=== PATIENT | male | born 1945 | race Caucasian/White ===

== ENCOUNTER → 2017-02-13 | Outpatient (REF) ==
[~2017-02-13] MED LIST: ALLEGRA 180MG180 MG PO; ALLEGRA180 MG PO; ASPIR-LOW81 MG PO; ASPIRIN 32325 MG/TAB PO; ASPIRIN E.C. 8181 MG PO; ATOXIMETIN-B1 CAP PO; BETAPACE 120MG120 MG PO; BETAPACE160 MG PO; CALCIUM + D 5001 TAB PO; CALCIUM 600MG+D1 TAB PO; CARAFATE 1GM1 G PO; CIPRO 500MG TA500 MG PO; CLARITIN 1010 MG/TAB PO; DOXYCYCLINE 10100 MG PO; ELIQUIS 5MG PO; FISH OIL1 IU PO; FLEXERIL10 MG PO; FLOVENT DI50 MCG/Act IH; GARLIC; GARLIC100 MG PO; GLUCOTROL XL10 MG PO; GLUCOTROL XL5 MG/TAB PO; KETOROLAC10 MG PO; KLOR-CON SPRINK8 MEQ PO; KLOR-CON/EF25 MEQ PO; LASIX; LAVITRA PO; LEVITRA10 MG PO; LIDODERM PATCH TP; LOPRESSOR100 MG PO; METFORMIN HCL1000 MG PO; MICARDIS HCT 251 TAB PO; MICARDIS80 MG PO; MICRO-K8 MEQ PO; MULTAQ400 MG PO; NATURAL E400 IU PO; NEXIUM 40MG40 MG PO; NORCO 325 MG-51 TAB PO; OMEGA 31000 MG PO; OMEGA-3 FISH1000 MG PO; PHARMASSURE SA160 MG PO; PLENDIL PO; PLENDIL10 MG PO; POTASSIUM CH2 MEQ/ML; POTASSIUM20 MEQ PO; ROXICODONE 55 MG/TAB PO; SOMA350 MG PO; TOPROL XL100 MG PO; TYLENOL 325MG325 MG PO; VIAGRA100 MG PO; VIAGRA50 M1 PO; VITAMIN E1000 U/CAP PO; ZOCOR 20MG20 MG PO; ZOFRAN4 MG PO; [UNRECOGNIZED DRUG - OTHER]
== END ==
LOC: ZLAB.STJ 11:28
DX: Z01.89 Encounter for other specified special examinations (principal)

== ENCOUNTER 2017-03-14 13:26 | Inpatient (IN) | payer MEDICARE, OTHER ==
[~2017-03-14] VITALS: Ht 172.7 cm; Wt 107.8 kg
[~2017-03-14 13:26] MED LIST changes: -ASPIRIN 32325 MG/TAB PO; -BETAPACE 120MG120 MG PO; -BETAPACE160 MG PO; -ELIQUIS 5MG PO; -GARLIC100 MG PO; -GLUCOTROL XL10 MG PO; -KLOR-CON/EF25 MEQ PO; -LOPRESSOR100 MG PO; -MULTAQ400 MG PO; -OMEGA-3 FISH1000 MG PO; -VIAGRA50 M1 PO
[2017-03-16] VITALS (8 sets, daily range): BP systolic 106–151; BP diastolic 49–74; PULSE 63–92; TEMP 97.5–98
[2017-03-16] MEDS ORDERED: ELIQUIS 5MG PO (08:55)
[2017-03-16] MEDS ORDERED: ASPIRIN 32325 MG/TAB PO (08:55)
[2017-03-16] MEDS ORDERED: PLENDIL10 MG PO (08:56)
[2017-03-16] MEDS ORDERED: GARLIC100 MG PO (08:56)
[2017-03-16] MEDS ORDERED: LOPRESSOR100 MG PO (08:58)
[2017-03-16] MEDS ORDERED: MICARDIS HCT 251 TAB PO (08:58)
[2017-03-16] MEDS ORDERED: GLUCOTROL XL10 MG PO (08:58)
[2017-03-16] MEDS ORDERED: KLOR-CON/EF25 MEQ PO (08:59)
[2017-03-16] MEDS ORDERED: OMEGA-3 FISH1000 MG PO (08:59)
[2017-03-16] MEDS ORDERED: VIAGRA50 M1 PO (09:00)
[2017-03-16] MEDS ORDERED: PHARMASSURE SA160 MG PO (09:00)
[2017-03-16] MEDS ORDERED: CARAFATE 1GM1 G PO (09:00)
[2017-03-16] MEDS ORDERED: NATURAL E400 IU PO (09:01)
[2017-03-16] MEDS ORDERED: MULTAQ400 MG PO (09:02)
[2017-03-16 09:22] LABS: BASO # 0.1 (0.0-0.2); EOS # 0.3 (0.0-0.7); EOS % 2.9 % (0-4.0); GRAN # 6.3 (1.4-6.5); GRAN % 64.5 % (42.2-75.2); HEMATOCRIT 49.8 % (42.0-52.0); HEMOGLOBIN 16.8 g/dl (13.5-18.0); LYMPH % 20.4 % (20.0-51.0); MEAN CELL VOLUME 90 fl (80.0-100.0); MEAN CORPUSCULAR HEMOGLOBIN 30 pg (27.0-31.0); MEAN CORPUSCULAR HGB CONC 34 g/dl (33.0-37.0); MEAN PLATELET VOLUME 10.4 fl (7.4-10.4); MONO # 1.1 (0.1-0.6); MONO % 10.9 % (1.7-9.3); PLATELET COUNT 189 K/mm3 (130-400); RED BLOOD COUNT 5.52 M/mm3 (4.20-5.60); REDCELL DISTRIBUTION WIDTH-CV 14.2 % (11.5-14.5); WHITE BLOOD COUNT 9.8 K/mm3 (4.8-10.8)
[2017-03-16 09:28] LABS: INR 1.3 (0.8-3.0); PROTHROMBIN TIME 14.7 SECONDS (9.7-12.8)
[2017-03-16 09:31] LABS: ADJUSTED CALCIUM 9.3 mg/dL (8.4-10.2); ALBUMIN 4.3 gm/dL (3.5-5.0); BILIRUBIN,TOTAL 1.1 mg/dL (0.0-1.0); CALCIUM 9.5 mg/dL (8.4-10.2); CREATININE, serum 1.03 mg/dL (0.66-1.25); MAGNESIUM 2.1 mg/dL (1.6-2.3); TOTAL PROTEIN 7.2 gm/dL (6.4-8.2)
[2017-03-16 12:24] LABS: PARTIAL THROMBOPLASTIN TIME 36.4 SECONDS (26.0-37.0)
[2017-03-17 03:30] VITALS: BP 129/67; PULSE 68; TEMP 98.1
[2017-03-17 07:17] LABS: INR 1.3 (0.8-3.0); PROTHROMBIN TIME 14.9 SECONDS (9.7-12.8)
[2017-03-17 07:21] LABS: CALCIUM 8.9 mg/dL (8.4-10.2); CREATININE, serum 0.85 mg/dL (0.66-1.25); POTASSIUM 3.6 mmol/L (3.4-5.0)
[2017-03-17 07:32] VITALS: BP 141/60; PULSE 68; TEMP 98.2
[2017-03-17 11:15] VITALS: BP 128/59; PULSE 62; TEMP 98.5
[2017-03-17 15:33] VITALS: BP 133/56; PULSE 60; TEMP 97.7
[2017-03-17 21:07] VITALS: BP 113/82; PULSE 61; TEMP 98.8
[2017-03-17 23:22] VITALS: BP 115/60; PULSE 72; TEMP 98
[2017-03-18 04:23] VITALS: BP 142/55; PULSE 64; TEMP 98.2
[2017-03-18 07:18] VITALS: BP 117/76; PULSE 62; TEMP 97.5
[2017-03-18 07:46] LABS: CALCIUM 9.2 mg/dL (8.4-10.2); CREATININE, serum 0.86 mg/dL (0.66-1.25); POTASSIUM 3.7 mmol/L (3.4-5.0)
[2017-03-18 08:04] LABS: INR 1.4 (0.8-3.0); PROTHROMBIN TIME 15.5 SECONDS (9.7-12.8)
[2017-03-18] MEDS ORDERED: BETAPACE 120MG120 MG PO (11:02)
== END 2017-03-18 11:59 | disposition home or self-care (01) | DRG 310 ==
LOC: MEDICAL 03-16 07:47
PROVIDERS: Internal Medicine Cardiovascular Disease
PROC: 5A2204Z Restoration of Cardiac Rhythm, Single (ICD-10-PCS; principal; 2017-03-16)
DX: I48.91 Unspecified atrial fibrillation (principal); I10 Essential (primary) hypertension; K21.9 Gastro-esophageal reflux disease without esophagitis; E11.9 Type 2 diabetes mellitus without complications; E78.5 Hyperlipidemia, unspecified
CPT/HCPCS: J2704; J7030

== ENCOUNTER 2017-03-27 10:42 | Day surgery (SDC) | payer MEDICARE, OTHER ==
[~2017-03-27] VITALS: Ht 172.8 cm; Wt 105.0 kg
[~2017-03-27 10:42] MED LIST changes: +ASPIRIN 32325 MG/TAB PO; +BETAPACE 120MG120 MG PO; +ELIQUIS 5MG PO; +GARLIC100 MG PO; +GLUCOTROL XL10 MG PO; +KLOR-CON/EF25 MEQ PO; +LOPRESSOR100 MG PO; +MULTAQ400 MG PO; +OMEGA-3 FISH1000 MG PO; +VIAGRA50 M1 PO
[2017-03-27] MEDS ORDERED: BETAPACE160 MG PO (11:11)
[2017-03-27 11:12] LABS: HEMOGLOBIN 17.8 g/dl (13.5-18.0); MEAN CELL VOLUME 90 fl (80.0-100.0); MEAN CORPUSCULAR HEMOGLOBIN 30 pg (27.0-31.0); MEAN CORPUSCULAR HGB CONC 34 g/dl (33.0-37.0); MEAN PLATELET VOLUME 9.7 fl (7.4-10.4); PLATELET COUNT 194 K/mm3 (130-400); RED BLOOD COUNT 5.85 M/mm3 (4.20-5.60); WHITE BLOOD COUNT 9.3 K/mm3 (4.8-10.8)
[2017-03-27 11:16] LABS: HEMATOCRIT 52.4 % (42.0-52.0)
[2017-03-27 11:17] LABS: INR 1.3 (0.8-3.0); PROTHROMBIN TIME 15.1 SECONDS (9.7-12.8)
[2017-03-27 11:21] LABS: CALCIUM 9.3 mg/dL (8.4-10.2); CREATININE, serum 0.8 mg/dL (0.66-1.25)
[2017-03-27 11:40] VITALS: BP 134/70; PULSE 74; TEMP 98.6
== END 2017-03-27 12:21 | disposition home or self-care (01) ==
LOC: EUO 10:42 → COL.CAR 10:45 → EUO 12:21
PROVIDERS: Internal Medicine Cardiovascular Disease
DX: I48.0 Paroxysmal atrial fibrillation (principal); Z53.09 Procedure and treatment not carried out because of other contraindication; I10 Essential (primary) hypertension; E78.2 Mixed hyperlipidemia; E11.9 Type 2 diabetes mellitus without complications; K21.9 Gastro-esophageal reflux disease without esophagitis; R42 Dizziness and giddiness; E07.9 Disorder of thyroid, unspecified; K75.81 Nonalcoholic steatohepatitis (NASH); E66.9 Obesity, unspecified; Z79.01 Long term (current) use of anticoagulants; R60.0 Localized edema; C61 Malignant neoplasm of prostate
CPT/HCPCS: J2704

== ENCOUNTER → 2017-04-06 | Outpatient (REF) ==
[~2017-04-06] MED LIST changes: +ALLEGRA 60MG TA60 MG PO; +BETAPACE160 MG PO; +JANUVIA 100MG100 MG PO; +LIDODERM 5% PATC1 EA TP; +NEURONTIN600 MG/TAB PO; +PROAIR HFA0.09 MG/AC IH; +TIKOSYN0.5 MG PO; +ZANAFLEX2 MG PO
== END ==
LOC: ZLAB.WCH 21:05
DX: Z01.89 Encounter for other specified special examinations (principal)

== ENCOUNTER → 2017-10-19 | Outpatient (REF) ==
[~2017-10-19] MED LIST changes: -ALLEGRA 60MG TA60 MG PO; -JANUVIA 100MG100 MG PO; -LIDODERM 5% PATC1 EA TP; -NEURONTIN600 MG/TAB PO; -PROAIR HFA0.09 MG/AC IH; -TIKOSYN0.5 MG PO; -ZANAFLEX2 MG PO
== END ==
LOC: ZLAB.WCH 16:01
DX: Z01.89 Encounter for other specified special examinations (principal)

== ENCOUNTER → 2017-12-05 | Outpatient (CLI) | payer MEDICARE, OTHER | LOC: MHCPAIN 14:51 | DX: G89.29 Other chronic pain (principal); M47.812 Spondylosis without myelopathy or radiculopathy, cervical region; M48.02 Spinal stenosis, cervical region | CPT/HCPCS: G0463 ==

== ENCOUNTER → 2018-01-18 | Outpatient (REF) | LOC: ZLAB.WCH 15:13 | DX: Z01.89 Encounter for other specified special examinations (principal) ==

== ENCOUNTER → 2018-04-04 | Outpatient (REF) | LOC: ZLAB.WCH 09:09 | DX: Z01.89 Encounter for other specified special examinations (principal) ==

== ENCOUNTER → 2018-04-12 | Outpatient (REF) | LOC: ZLAB.WCH 16:08 | DX: Z01.89 Encounter for other specified special examinations (principal) ==

== ENCOUNTER → 2018-10-12 | Outpatient (REF) | LOC: ZLAB.WCH 12:28 | DX: Z01.89 Encounter for other specified special examinations (principal) ==

== ENCOUNTER 2018-12-16 06:57 | Inpatient (IN) | payer MEDICARE, OTHER ==
[~2018-12-16] VITALS: Ht 172.7 cm; Wt 105.6 kg
[2018-12-16] VITALS (13 sets, daily range): BP systolic 127–159; BP diastolic 69–91; PULSE 72–90; TEMP 36.7; O2SAT 95–97
[2018-12-16] MEDS ORDERED: ALLEGRA 60MG TA60 MG PO (07:58)
[2018-12-16] MEDS ORDERED: NEURONTIN600 MG/TAB PO (07:59)
[2018-12-16] MEDS ORDERED: CLARITIN 1010 MG/TAB PO (08:00)
[2018-12-16] MEDS ORDERED: PROAIR HFA0.09 MG/AC IH (08:23)
[2018-12-16] MEDS ORDERED: ZANAFLEX2 MG PO (08:25)
--- NOTE | 2018-12-16 09:40 | NUR ---
Pt ambulated from Express Unit to ICU 4 without difficulty after Loop Recorder implatation complete. Report recieved from ERIN Browning. Lab called to complete blood draw. Len pharmacist on unit assisting with contraindicated medications (Hydrochlorothiazide) and labs to properlly dose medication. MD Grei made aware of [facility] home med that pt states he took this AM. Call light in reach, educated to call for assistane before ambulating, telemetry box provided to minimize fall risk with wires. No complaints at this time
[2018-12-16 10:48] LABS: BASO % 0.6 % (0.0-2.0); EOS # 0.1 (0.0-0.7); EOS % 1.9 % (0-4.0); GRAN # 4.3 (1.4-6.5); GRAN % 62.9 % (42.2-75.2); HEMATOCRIT 48.6 % (42.0-52.0); HEMOGLOBIN 16.6 g/dl (13.5-18.0); LYMPH # 1.6 (1.2-3.4); LYMPH % 23.4 % (20.0-51.0); MEAN CELL VOLUME 89 fl (80.0-100.0); MEAN CORPUSCULAR HEMOGLOBIN 31 pg (27.0-31.0); MEAN CORPUSCULAR HGB CONC 34 g/dl (33.0-37.0); MEAN PLATELET VOLUME 10.3 fl (7.4-10.4); MONO # 0.7 (0.1-0.6); MONO % 10.9 % (1.7-9.3); PLATELET COUNT 153 K/mm3 (130-400); RED BLOOD COUNT 5.44 M/mm3 (4.20-5.60); REDCELL DISTRIBUTION WIDTH-CV 13.6 % (11.5-14.5)
[2018-12-16 10:57] LABS: CALCIUM 9.1 mg/dL (8.4-10.2); CREATININE, serum 0.79 (0.66-1.25); MAGNESIUM 1.8 mg/dL (1.6-2.3); POTASSIUM 3.6 mmol/L (3.4-5.0)
--- NOTE | 2018-12-16 11:50 | NUR ---
SW met with the patient to discuss a discharge plan. [place], [place] to [place]. The patient does not use any DME and reports independence with ADLs. The patient's PCP is Dr. Melendez in [place] and the pt receives his medications from [place]. The patient does not have advanced directives in the EMR, but reports he does have them completed at home. The patient plans to return home upon discharge. There are no additional needs at this time.
[2018-12-16 12:09] LABS: THYROID STIMULATING HORMONE 3.2 uIU/mL (0.465-4.680)
--- NOTE | 2018-12-16 19:45 | NUR ---
received report from awilda gerard.
--- NOTE | 2018-12-16 21:08 | NUR ---
ASSESSMENT COMPLETED AT THIS TIME. PATIENT WATCHING TV IN HIS CHAIR. DENIES ANY PAIN AT THIS TIME.
--- NOTE | 2018-12-16 22:53 | NUR ---
NOTIFIED DR. LESLIE BY PAGER TO DISCUSS PATIENTS PROLONGED QTC INTERVAL.
[2018-12-17] VITALS (7 sets, daily range): BP systolic 123–155; BP diastolic 62–78; PULSE 70–92; TEMP 98.3–98.5; O2SAT 92
--- NOTE | 2018-12-17 01:00 | NUR ---
patient converted back into atrial fibrillation. will continue to monitor.
[2018-12-17 06:01] LABS: CALCIUM 9.1 mg/dL (8.4-10.2); CREATININE, serum 0.87 (0.66-1.25); POTASSIUM 3.9 mmol/L (3.4-5.0)
[2018-12-17 06:35] LABS: MAGNESIUM 1.9 mg/dL (1.6-2.3)
--- NOTE | 2018-12-17 07:30 | NUR ---
Report received from Frannie KHAN and care resumed. Pt sitting in chair eating breakfast at this time. Denies any concerns. Will continue to follow.
--- NOTE | 2018-12-17 07:36 | NUR ---
gave report to awilda zaidi.
--- NOTE | 2018-12-17 09:08 | NUR ---
Initial visit; Patient thanked High School Math Tutor for stopping and offering God's blessings. Patient states he has a prayer list of his own and thanked High School Math Tutor for letting him know Holy Communion will be offered him while he is here at [place].
[2018-12-17] MEDS ORDERED: JANUVIA 100MG100 MG PO (09:37)
[2018-12-17] MEDS ORDERED: ALLEGRA 180MG180 MG PO (09:39)
--- NOTE | 2018-12-17 19:13 | NUR ---
Report given to Cristal KHAN and care transfered.
--- NOTE | 2018-12-17 23:49 | NUR ---
2330 - PT'S QTC AT 520, REPORTED TO DR. AUGUST [id number], ORDERED PT TO BE NPO AT MIDNIGHT AND TIKOSYN DOSE DECREASED TO 250 MCG STARTING TOMORROW AT 0900.
[2018-12-18] VITALS (9 sets, daily range): BP systolic 133–147; BP diastolic 58–88; PULSE 4–92; TEMP 97.7–98.6; O2SAT 96–98
[2018-12-18 05:27] LABS: CREATININE, serum 0.8 (0.66-1.25); POTASSIUM 3.9 mmol/L (3.4-5.0)
--- NOTE | 2018-12-18 06:23 | NUR ---
UNABLE TO GET PT'S WEIGHT BED IS BROKEN.
--- NOTE | 2018-12-18 07:20 | NUR ---
Report received from Cristal KHAN and care resumed.
--- NOTE | 2018-12-18 12:36 | NUR ---
Pt back in SR at this time.
--- NOTE | 2018-12-18 15:49 | NUR ---
Report called to Hilary KHAN on medical floor. Pt taken by wheelchair on tele to room 357. Bedside update given to Hilary.
--- NOTE | 2018-12-18 15:50 | NUR ---
Pt arrived to room 357 at this time. He is A/O x3. Up independently in room. Gait steady. Pt denies any pain or palpitations at this time. HR even and regular. Lung sounds clear throughout. Mild 2+ edema present to BLE. +BS, nontender abdomen. Tele leads in place. POC discussed with patient, who verbalizes understanding. He denies needs at this time. Call light within reach. Will continue to monitor.
--- NOTE | 2018-12-19 | NUR ---
Patient assessed around 2039. Denied having pain and discomfort. Alert and oriented, and able to make needs known. LS CTA. Respirations even and unlabored. HRR. BSAx4. Peripheral IV to right AC flushed. Site is without redness, warmth, swelling, and pain. Steristrips to left chest are CDI. Site is without redness, warmth, swelling, pain, and discomfort. Patient NPO after midnight for possible cardioversion if patient goes into A-fib. Patient voices no needs or concerns. Resting in bed with eyes closed at this time. Call light is within reach.
[2018-12-19 04:02] VITALS: BP 141/63; PULSE 70; TEMP 97.6
--- NOTE | 2018-12-19 05:15 | NUR ---
Patient has been resting in bed with eyes closed throughout most of this shift. Has denied having pain and discomfort. Voices no needs or concerns. Steristrips to chest are CDI. Denies having pain and discomfort to area. Resting in bed with eyes closed at this time. Call light is within reach.
--- NOTE | 2018-12-19 07:16 | NUR ---
Report given to ERIN Dunn.
[2018-12-19 07:25] VITALS: BP 154/66; PULSE 70; TEMP 98.3
[2018-12-19 07:37] LABS: CALCIUM 9.3 mg/dL (8.4-10.2); CREATININE, serum 0.75 (0.66-1.25); MAGNESIUM 2.2 mg/dL (1.6-2.3); POTASSIUM 4.3 mmol/L (3.4-5.0)
--- NOTE | 2018-12-19 09:53 | NUR ---
Pt alert and oriented and denies chest pain or SOB. Pt IV intact and no redness or infiltration noted. Pt remains on Tikosyn and QTC ok this am on EKG. Pt remains in sinus rhythm. Pt NPO in case pt goes back to AFIB and needs cardioverted. Pt hopeful to go home today. Pt has call light in reach and denies needs at this time.
[2018-12-19] MEDS ORDERED: TIKOSYN0.5 MG PO (10:52)
--- NOTE | 2018-12-19 11:00 | NUR ---
Pt given discharge orders and education provided on medications and discharge instructions. Pt IV discontinued and tip intact and no redness or infiltration noted. Pt denies pain or SOB. Pt has all belongings and escorted out by aide to car without difficulty.
== END 2018-12-19 11:00 | disposition home or self-care (01) | DRG 262 ==
LOC: COL.CAR 06:57 → ICU 07:15 → COL.CAR 09:52 → ICU 09:52 → COL.CAR 10:15 → MEDICAL 12-18 15:35
PROVIDERS: Nurse Practitioner; ADMIT Internal Medicine Cardiovascular Disease
PROC: 0JH632Z Insertion of Monitoring Device into Chest Subcutaneous Tissue and Fascia, Percutaneous Approach (ICD-10-PCS; principal; 2018-12-16)
DX: I48.0 Paroxysmal atrial fibrillation (principal); I10 Essential (primary) hypertension; E11.9 Type 2 diabetes mellitus without complications; E78.2 Mixed hyperlipidemia; K21.9 Gastro-esophageal reflux disease without esophagitis; M47.817 Spondylosis without myelopathy or radiculopathy, lumbosacral region; I44.0 Atrioventricular block, first degree; E66.9 Obesity, unspecified; K75.81 Nonalcoholic steatohepatitis (NASH); Z68.35 Body mass index [BMI] 35.0-35.9, adult; Z79.01 Long term (current) use of anticoagulants; Z88.9 Allergy status to unspecified drugs, medicaments and biological substances; Z88.8 Allergy status to other drugs, medicaments and biological substances
CPT/HCPCS: C1764; J2405

== ENCOUNTER 2019-01-02 10:01 | Day surgery (SDC) | payer MEDICARE, OTHER ==
[~2019-01-02] VITALS: Ht 172.7 cm; Wt 107.0 kg
[~2019-01-02 10:01] MED LIST changes: +ALLEGRA 60MG TA60 MG PO; +JANUVIA 100MG100 MG PO; +NEURONTIN600 MG/TAB PO; +PROAIR HFA0.09 MG/AC IH; +TIKOSYN0.5 MG PO; +ZANAFLEX2 MG PO
[2019-01-02] MEDS ORDERED: LIDODERM 5% PATC1 EA TP (10:21)
[2019-01-02] MEDS ORDERED: TIKOSYN0.5 MG PO (10:26)
[2019-01-02] MEDS ORDERED: CALCIUM 600MG+D1 TAB PO (10:29)
[2019-01-02 10:30] VITALS: BP 128/67; PULSE 80; TEMP 98.4
--- NOTE | 2019-01-02 11:10 | NUR ---
CV cancelled, pt not in a fib. Pt discharged per ambulation with son.
== END 2019-01-02 12:34 | disposition home or self-care (01) ==
LOC: COL.CAR 10:01
DX: I48.0 Paroxysmal atrial fibrillation (principal); Z53.8 Procedure and treatment not carried out for other reasons; I48.91 Unspecified atrial fibrillation; Z82.49 Family history of ischemic heart disease and other diseases of the circulatory system; I10 Essential (primary) hypertension; E11.9 Type 2 diabetes mellitus without complications; K21.9 Gastro-esophageal reflux disease without esophagitis; E66.9 Obesity, unspecified; Z68.35 Body mass index [BMI] 35.0-35.9, adult; Z98.1 Arthrodesis status; Z79.01 Long term (current) use of anticoagulants; Z79.899 Other long term (current) drug therapy; Z80.9 Family history of malignant neoplasm, unspecified; Z83.3 Family history of diabetes mellitus; Z82.3 Family history of stroke; Z95.818 Presence of other cardiac implants and grafts; E78.2 Mixed hyperlipidemia; G89.29 Other chronic pain; K76.9 Liver disease, unspecified; E07.9 Disorder of thyroid, unspecified; M47.897 Other spondylosis, lumbosacral region; K76.0 Fatty (change of) liver, not elsewhere classified; I87.1 Compression of vein; I34.0 Nonrheumatic mitral (valve) insufficiency

== ENCOUNTER 2019-04-17 17:34 | Emergency (ER) | payer MEDICARE, OTHER ==
[~2019-04-17] VITALS: Ht 172.7 cm; Wt 109.1 kg
[~2019-04-17 17:34] MED LIST changes: +LIDODERM 5% PATC1 EA TP
[2019-04-17 17:35] VITALS: TEMP 98.3
[2019-04-17 19:25] VITALS: BP 138/70; PULSE 70
== END 2019-04-17 19:25 | disposition home or self-care (01) ==
LOC: COL.ER 17:34
DX: S16.1XXA Strain of muscle, fascia and tendon at neck level, initial encounter (principal); S00.93XA Contusion of unspecified part of head, initial encounter; I10 Essential (primary) hypertension; E11.9 Type 2 diabetes mellitus without complications; Z79.84 Long term (current) use of oral hypoglycemic drugs; Z98.890 Other specified postprocedural states; V89.2XXA Person injured in unspecified motor-vehicle accident, traffic, initial encounter

== ENCOUNTER → 2019-07-08 | Outpatient (CLI) | payer OTHER, MEDICARE | LOC: MHCPAIN 09:32 | DX: M47.812 Spondylosis without myelopathy or radiculopathy, cervical region (principal); R51 Headache | CPT/HCPCS: G0463 ==

== ENCOUNTER → 2019-08-19 | Outpatient (CLI) | payer OTHER, MEDICARE | LOC: MHCPAIN 10:06 | DX: M54.81 Occipital neuralgia (principal); R51 Headache | CPT/HCPCS: G0463 ==

== ENCOUNTER → 2019-09-11 | Outpatient (CLI) | payer OTHER, MEDICARE | LOC: MHCPAIN 08:26 | DX: M47.812 Spondylosis without myelopathy or radiculopathy, cervical region (principal) ==

== ENCOUNTER → 2019-09-16 | Outpatient (CLI) | payer OTHER, MEDICARE | LOC: MHCPAIN 08:16 | DX: R51 Headache (principal); M47.812 Spondylosis without myelopathy or radiculopathy, cervical region | CPT/HCPCS: G0463 ==

== ENCOUNTER → 2019-09-25 | Outpatient (CLI) | payer OTHER, MEDICARE | LOC: MHCPAIN 08:42 | DX: M54.2 Cervicalgia (principal) ==

== ENCOUNTER → 2019-09-29 | Outpatient (CLI) | payer OTHER, MEDICARE | LOC: MHCPAIN 08:52 | DX: R51 Headache (principal); M54.81 Occipital neuralgia; M47.812 Spondylosis without myelopathy or radiculopathy, cervical region; E11.9 Type 2 diabetes mellitus without complications; Z79.4 Long term (current) use of insulin; I48.91 Unspecified atrial fibrillation; Z79.01 Long term (current) use of anticoagulants | CPT/HCPCS: G0463 ==

== ENCOUNTER → 2020-01-01 | Outpatient (CLI) | payer OTHER, MEDICARE | LOC: MHCPAIN 07:40 | DX: M47.812 Spondylosis without myelopathy or radiculopathy, cervical region (principal); M54.2 Cervicalgia; R51 Headache; G89.29 Other chronic pain; I48.91 Unspecified atrial fibrillation | CPT/HCPCS: G0463; J2250; J3010 ==

== ENCOUNTER → 2020-03-01 | Outpatient (CLI) | payer OTHER, MEDICARE | LOC: MHCPAIN 08:48 | DX: M47.812 Spondylosis without myelopathy or radiculopathy, cervical region (principal); M54.2 Cervicalgia; R51 Headache; M54.81 Occipital neuralgia | CPT/HCPCS: G0463 ==

== ENCOUNTER → 2020-08-18 | Outpatient (CLI) | payer MEDICARE, OTHER ==
[~2020-08-18] VITALS: Ht 172.7 cm; Wt 111.0 kg
[2020-08-18] VITALS (8 sets, daily range): BP systolic 114–150; BP diastolic 62–83; PULSE 62–77
[~2020-08-18] MED LIST changes: +NATURE'S BLEND600 M2 PO; +SAW PALMETTO S450 MG PO
[2020-08-18 10:52] LABS: INR 1.2 (0.8-3.0); PROTHROMBIN TIME 13.6 SECONDS (9.7-12.8)
--- NOTE | 2020-08-18 11:45 | NUR ---
pt in CT scanner, Dr Andrade into start procedure
--- NOTE | 2020-08-18 11:55 | NUR ---
specimans obtained from liver and put in formulin, taken to lab
== END ==
LOC: COL.RAD 08-17 09:30
DX: K75.9 Inflammatory liver disease, unspecified (principal)

== ENCOUNTER 2021-07-21 10:49 | Observation (INO) | payer MEDICARE, OTHER ==
[~2021-07-21] VITALS: Ht 172.7 cm; Wt 106.5 kg
[2021-07-21 11:04] LABS: BASO # 0.1 K/mm3 (0.0-0.2); BASO % 0.6 % (0.0-2.0); EOS # 0.3 K/mm3 (0.0-0.7); EOS % 2.5 % (0.0-4.0); GRAN # 6.6 K/mm3 (1.4-6.5); GRAN % 63.2 % (42.2-75.2); HEMOGLOBIN 17.4 g/dl (13.5-18.0); LYMPH # 2.3 K/mm3 (1.2-3.4); LYMPH % 22.3 % (20.0-51.0); MEAN CELL VOLUME 88 fl (80.0-100.0); MEAN CORPUSCULAR HEMOGLOBIN 30 pg (27-31); MEAN CORPUSCULAR HGB CONC 34 g/dl (33.0-37.0); MONO # 1.1 K/mm3 (0.1-0.6); MONO % 10.9 % (1.7-9.3); PLATELET COUNT 168 K/mm3 (130-400); RED BLOOD COUNT 5.81 M/mm3 (4.20-5.60); REDCELL DISTRIBUTION WIDTH-CV 13.9 % (11.5-14.5)
[2021-07-21 11:14] LABS: INR 1.8 (0.8-3.0); PROTHROMBIN TIME 19.5 SECONDS (9.7-12.8)
[2021-07-21 11:19] LABS: PARTIAL THROMBOPLASTIN TIME 44.4 SECONDS (26.0-37.0)
[2021-07-21 11:22] LABS: ALANINE AMINOTRANSFERASE 26 U/L (0-55); ALBUMIN 4.2 gm/dL (3.4-4.8); ALKALINE PHOSPHATASE 87 U/L (40-150); ANION GAP 11 mmol/L (7-16); AST,SGOT 22 U/L (5-34); BILIRUBIN,TOTAL 1.4 mg/dL (0.2-1.2); BLOOD UREA NITROGEN 22 mg/dL (8-26); CALCIUM 9.4 mg/dL (8.4-10.2); CARBON DIOXIDE 27 mmol/L (23-31); CHLORIDE 103 mmol/L (98-107); CREATININE, serum 1.12 mg/dL (0.72-1.25); GLUCOSE 145 mg/dL (70-99); SODIUM 141 mmol/L (136-145); TOTAL PROTEIN 7.4 gm/dL (6.2-8.1)
[2021-07-21 11:32] LABS: TROPONIN-I < 0.010 ng/mL (0.00-0.033)
[2021-07-21 17:54] VITALS: BP 149/82; PULSE 59; TEMP 98.3
[2021-07-21 20:00] VITALS: BP 138/56; PULSE 88; TEMP 98
--- NOTE | 2021-07-21 20:00 | NUR ---
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 Assessment complete. A&Ox4. Denies pain/nausea/shortness of breath. VS remain stable. Tele reporting SR. On room air. Left AC INT flushes without difficulty. Neuro checks WNL. Plan of care discussed for this shift to include meds/calling for questions/concerns. Verbalizes understanding/denies needs. Call light in reach. Will monitor.
[2021-07-21] MEDS ORDERED: LANTUS SOLOS100 U/ML SQ (20:38)
[2021-07-21] MEDS ORDERED: NEURONTIN600 MG/TAB PO (20:44)
[2021-07-21] MEDS ORDERED: LOPRESSOR 550 MG/TAB PO (20:45)
[2021-07-21] MEDS ORDERED: MILK THISTLE150 MG PO (20:46)
[2021-07-21 23:20] VITALS: BP 128/56; PULSE 63; TEMP 98
[2021-07-22 03:17] VITALS: BP 161/69; PULSE 63; TEMP 98
--- NOTE | 2021-07-22 03:46 | NUR ---
States has a headache. States he got up to bathroom and then his vitals were taken after and the increase in his BP worried him and gave him headache. Vitals rechecked by this nurse BP 130s/50s. Offered getting order for medication but states it will go away now that he knows his BP isnt high. Provided a cool wash clothe per request.
--- NOTE | 2021-07-22 05:32 | NUR ---
Rested well this shift. NC WNL. Denid shortenss of breath/nausea. Did c/o a headache x1 but relieved with cold wash cloth. VS remained stable. Denies current needs. Call light in reach. Will monitor.
--- NOTE | 2021-07-22 06:58 | NUR ---
Pt is awake and has ordered breakfast at this time. He is feeling much better from yesterday. The patient is able to walk and has minimal deficits from the TIA. No other concerns at this time. Will continue monitoring.
[2021-07-22 07:39] LABS: BASO # 0.1 K/mm3 (0.0-0.2); BASO % 0.7 % (0.0-2.0); EOS # 0.2 K/mm3 (0.0-0.7); EOS % 2.4 % (0.0-4.0); GRAN # 4.5 K/mm3 (1.4-6.5); GRAN % 60.6 % (42.2-75.2); HEMATOCRIT 48.9 % (42.0-52.0); HEMOGLOBIN 16.6 g/dl (13.5-18.0); LYMPH # 1.9 K/mm3 (1.2-3.4); LYMPH % 26.1 % (20.0-51.0); MEAN CELL VOLUME 89 fl (80.0-100.0); MEAN CORPUSCULAR HEMOGLOBIN 30 pg (27-31); MEAN CORPUSCULAR HGB CONC 34 g/dl (33.0-37.0); MEAN PLATELET VOLUME 10.8 fl (7.4-10.4); MONO # 0.7 K/mm3 (0.1-0.6); MONO % 9.8 % (1.7-9.3); PLATELET COUNT 141 K/mm3 (130-400); RED BLOOD COUNT 5.51 M/mm3 (4.20-5.60); REDCELL DISTRIBUTION WIDTH-CV 13.7 % (11.5-14.5)
[2021-07-22 08:00] LABS: ALBUMIN 3.7 gm/dL (3.4-4.8); CALCIUM 8.8 mg/dL (8.4-10.2); CREATININE, serum 0.83 mg/dL (0.72-1.25); MAGNESIUM 1.9 mg/dL (1.6-2.6); POTASSIUM 3.7 mmol/L (3.5-4.5)
[2021-07-22 08:26] VITALS: BP 136/59; PULSE 56; TEMP 97.6
[2021-07-22 11:27] VITALS: BP 143/61; PULSE 64; TEMP 97.7
[2021-07-22] MEDS ORDERED: LIPITOR 80MG80 MG PO (13:01)
[2021-07-22] MEDS ORDERED: XARELTO20 MG PO (13:03)
== END 2021-07-22 16:40 | disposition home or self-care (01) ==
LOC: COL.ER 10:49 → MEDICAL 12:32
PROVIDERS: Emergency Medicine; Physician Assistant; ADMIT Internal Medicine
DX: R29.810 Facial weakness (principal); R47.1 Dysarthria and anarthria; I48.91 Unspecified atrial fibrillation; I10 Essential (primary) hypertension; I25.10 Atherosclerotic heart disease of native coronary artery without angina pectoris; K21.9 Gastro-esophageal reflux disease without esophagitis; E11.40 Type 2 diabetes mellitus with diabetic neuropathy, unspecified; Z20.822 Contact with and (suspected) exposure to COVID-19; Z79.84 Long term (current) use of oral hypoglycemic drugs; Z79.899 Other long term (current) drug therapy; Z79.01 Long term (current) use of anticoagulants
CPT/HCPCS: 99232-AI; A9585; G0378; J1644; J1815; J2060; J7030; Q9967

== ENCOUNTER → 2021-11-28 | Outpatient (REF) ==
[~2021-11-28] MED LIST changes: +COLACE 100100 MG/CAP PO; +EPA FISH OIL1 SGL PO; +LANTUS SOLOS100 U/ML SQ; +LIPITOR 80MG80 MG PO; +LOPRESSOR 550 MG/TAB PO; +MILK THISTLE150 MG PO; +MOTRIN 400400 MG/TAB PO; +PROTONIX 40MG T40 MG PO; +XARELTO20 MG PO
[2021-11-28 08:26] LABS: BASO % 0.6 % (0.0-2.0); EOS # 0.5 K/mm3 (0.0-0.7); EOS % 6.8 % (0.0-4.0); GRAN # 3.6 K/mm3 (1.4-6.5); GRAN % 50.8 % (42.2-75.2); HEMATOCRIT 40.7 % (42.0-52.0); HEMOGLOBIN 13.8 g/dl (13.5-18.0); LYMPH # 2.1 K/mm3 (1.2-3.4); LYMPH % 29.3 % (20.0-51.0); MEAN CELL VOLUME 90 fl (80.0-100.0); MEAN CORPUSCULAR HEMOGLOBIN 31 pg (27-31); MEAN CORPUSCULAR HGB CONC 34 g/dl (33.0-37.0); MEAN PLATELET VOLUME 10.4 fl (7.4-10.4); MONO # 0.9 K/mm3 (0.1-0.6); MONO % 12.2 % (1.7-9.3); PLATELET COUNT 155 K/mm3 (130-400); RED BLOOD COUNT 4.51 M/mm3 (4.20-5.60)
[2021-11-28 08:54] LABS: ALBUMIN 3.5 gm/dL (3.4-4.8); BILIRUBIN,TOTAL 2.1 mg/dL (0.2-1.2); CALCIUM 8.4 mg/dL (8.4-10.2); CREATININE, serum 0.72 mg/dL (0.72-1.25); POTASSIUM 3.5 mmol/L (3.5-4.5); TOTAL PROTEIN 6.3 gm/dL (6.2-8.1)
== END ==
LOC: ZCOL.LAB 08:12
PROVIDERS: Internal Medicine
DX: I48.91 Unspecified atrial fibrillation (principal); S72.011A Unspecified intracapsular fracture of right femur, initial encounter for closed fracture

== ENCOUNTER 2022-09-18 08:37 | Day surgery (SDC) | payer MEDICARE, OTHER ==
[~2022-09-18] VITALS: Ht 152.5 cm; Wt 96.0 kg
[2022-09-18 09:54] VITALS: BP 140/85; PULSE 74; TEMP 97.6
[2022-09-18] MEDS ORDERED: LANTUS SOLOS100 U/ML SQ (10:31)
[2022-09-18] MEDS ORDERED: ZANAFLEX2 MG PO (10:33)
[2022-09-18] MEDS ORDERED: TRULICITY0.75 MG/0. SQ (10:33)
[2022-09-18] MEDS ORDERED: COZAAR100 MG PO (10:33)
[2022-09-18] MEDS ORDERED: HCTZ 25MG TAB25 MG PO (10:34)
[2022-09-18] MEDS ORDERED: LIPITOR 80MG80 MG PO (10:35)
[2022-09-18 10:37] VITALS: BP 122/71; PULSE 73
--- NOTE | 2022-09-18 10:47 | NUR ---
SEE MERGE FOR PROCEDURE, EQUIPMENT, VITAL SIGNS, AND OTHER PROCEDURAL INFORMATION
[2022-09-18] MEDS ORDERED: CEPHALEXIN500 M1 PO (10:58)
[2022-09-18 11:15] VITALS: BP 107/64; PULSE 63
--- NOTE | 2022-09-18 11:15 | NUR ---
pt to eu 9 via bed from lab aid, awake and alert, HOB elevated, has gauze dressing over site with pressure dressing on area is clean and dry, no swelling noted. call light in reach, inst pt will rest in bed next hour, takes water
[2022-09-18 11:30] VITALS: BP 116/66; PULSE 67
[2022-09-18 11:45] VITALS: BP 114/66; PULSE 69
--- NOTE | 2022-09-18 11:45 | NUR ---
pt rests in bed, reviewed discharge inst. with pt on care of site, when to shower and to take off dressing and leave steri-strips. 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 REviewed with pt activity today, and next appts, office called to reschedule 09/25 to 09/26 per pt requests, also to hold pressure to site if any bleeding.
[2022-09-18 12:00] VITALS: BP 110/57; PULSE 61
--- NOTE | 2022-09-18 12:15 | NUR ---
pt sat on side of bed, had snack, then iv d'cd and pt dressed, walked to b/r to void with standby assist. dressing site to chest remains unchanged, pt discharged at 1220 via w/c to truck with friend with all device equipment and discharge orders
== END 2022-09-18 12:25 | disposition home or self-care (01) ==
LOC: COL.CAR 08:37
DX: Z45.09 Encounter for adjustment and management of other cardiac device (principal); R00.1 Bradycardia, unspecified; E11.9 Type 2 diabetes mellitus without complications; E66.9 Obesity, unspecified
CPT/HCPCS: C1764; J0690; J2250; J3010

== ENCOUNTER 2022-11-24 09:30 | Day surgery (SDC) | payer MEDICARE, OTHER ==
[~2022-11-24] VITALS: Ht 172.7 cm; Wt 96.8 kg
[~2022-11-24 09:30] MED LIST changes: +CEPHALEXIN500 M1 PO; +COZAAR100 MG PO; +HCTZ 25MG TAB25 MG PO; +TRULICITY1.5 MG/0.5 SQ
[2022-11-24 09:57] VITALS: BP 159/87; PULSE 73; TEMP 98.6
[2022-11-24] MEDS ORDERED: OSCAL 500 TAB500 MG PO (10:03)
[2022-11-24] MEDS ORDERED: FISH OIL 1000MG1 CAP PO (10:06)
[2022-11-24] MEDS ORDERED: NORCO 325 MG-51 TAB PO (10:08)
[2022-11-24] MEDS ORDERED: LIDODERM 5% PATC1 EA TP (10:09)
[2022-11-24] MEDS ORDERED: VIAGRA50 M1 PO (10:10)
[2022-11-24] MEDS ORDERED: MICARDIS80 MG PO (10:11)
[2022-11-24] MEDS ORDERED: ZANAFLEX 4MG TAB4 MG PO (10:12)
[2022-11-24 11:15] VITALS: BP 150/86; PULSE 74; TEMP 98.6
[2022-11-24 11:30] VITALS: BP 143/83; PULSE 72
[2022-11-24 11:45] VITALS: BP 145/69; PULSE 72
[2022-11-24 12:00] VITALS: BP 143/72; PULSE 72
--- NOTE | 2022-11-24 12:15 | NUR ---
1115 RETURNS TO ROOM 5 PER CART AWAKE, ALERT. RESP UNLABORED. RECLINER MOVED CLOSER, PAT STAND TRANSFERS FROM CART TO RECLINER. DENIES NAUSEA, ABD PAIN OR DYSPHAGIA. VITAL SIGNS OBTAINED. CALL LIGHT AT SIDE. 1130 DR. JEFFREY HERE TO VISIT WITH PATIENT. 1132 TOLERATES PO JUICE AND PUDDING WITHOUT NAUSEA. SWALLOWS WITHOUT DIFFICULTY. 1145 DRESSES SELF AWAITING ARRIVAL OF SON 1200 TO BATHROOM PER WHEELCHAIR.
== END 2022-11-24 12:15 | disposition home or self-care (01) ==
LOC: SDCO 09:30
DX: I85.10 Secondary esophageal varices without bleeding (principal); K74.60 Unspecified cirrhosis of liver; K75.81 Nonalcoholic steatohepatitis (NASH); I48.91 Unspecified atrial fibrillation; R94.5 Abnormal results of liver function studies; Z79.01 Long term (current) use of anticoagulants; Z86.73 Personal history of transient ischemic attack (TIA), and cerebral infarction without residual deficits
CPT/HCPCS: J2704; J7120

== ENCOUNTER 2023-08-28 15:01 | Observation (INO) | payer MEDICARE, OTHER ==
[~2023-08-28] VITALS: Ht 170.2 cm; Wt 98.0 kg
[~2023-08-28 15:01] MED LIST changes: +FISH OIL 1000MG1 CAP PO; +OSCAL 500 TAB500 MG PO; +ZANAFLEX 4MG TAB4 MG PO
[2023-08-28 18:52] LABS: BASO # 0.1 K/mm3 (0.0-0.2); BASO % 0.6 % (0.0-2.0); EOS # 0.3 K/mm3 (0.0-0.7); EOS % 2.4 % (0.0-4.0); GRAN # 8.7 K/mm3 (1.4-6.5); GRAN % 66.9 % (42.2-75.2); HEMATOCRIT 45.8 % (42.0-52.0); HEMOGLOBIN 15.7 g/dl (13.5-18.0); LYMPH # 2.8 K/mm3 (1.2-3.4); LYMPH % 21.2 % (20.0-51.0); MEAN CELL VOLUME 89 fl (80.0-100.0); MEAN CORPUSCULAR HEMOGLOBIN 30 pg (27-31); MEAN CORPUSCULAR HGB CONC 34 g/dl (33.0-37.0); MEAN PLATELET VOLUME 10.8 fl (7.4-10.4); MONO # 1.1 K/mm3 (0.1-0.6); MONO % 8.5 % (1.7-9.3); PLATELET COUNT 167 K/mm3 (130-400); RED BLOOD COUNT 5.17 M/mm3 (4.20-5.60); REDCELL DISTRIBUTION WIDTH-CV 13.7 % (11.5-14.5)
[2023-08-28 19:07] LABS: ALBUMIN 4.1 gm/dL (3.4-4.8); BILIRUBIN,TOTAL 1.9 mg/dL (0.2-1.2); CALCIUM 10.1 mg/dL (8.4-10.2); CREATININE, serum 1.05 mg/dL (0.72-1.25); POTASSIUM 3.6 mmol/L (3.5-4.5); TOTAL PROTEIN 7.4 gm/dL (6.2-8.1)
[2023-08-28 19:12] LABS: TROPONIN-I 0.014 ng/mL (0.00-0.033)
[2023-08-28 21:51] LABS: COLLECTION METHOD CLEAN CATCH
[2023-08-28 22:22] LABS: PH 8.5 (5.0-8.5); SQUAMOUS EPITHELIAL 0-2 /hpf (0-10); URINE APPEARANCE Clear (CLEAR/HAZY); URINE BACTERIA Rare /hpf (NONE SEEN); URINE BLOOD 3+ (NEGATIVE); URINE COLOR Yellow (YELLOW); URINE GLUCOSE Negative (NEGATIVE); URINE KETONE 1+ (NEGATIVE); URINE NITRATE Negative (NEGATIVE); URINE PROTEIN(semi-quant) 1+ (NEGATIVE); URINE RBC 0-2 /hpf (0-2); URINE UROBILINOGEN 0.2 E.U/dL (0.2-1.0)
[2023-08-28] MEDS ORDERED: COLACE 100100 MG/CAP PO (23:02)
[2023-08-28 23:43] LABS: TRICYCLIC ANTIDEPRESS URINE NEGATIVE (NEGATIVE)
[2023-08-29] VITALS (9 sets, daily range): BP systolic 128–149; BP diastolic 63–82; PULSE 65–80; TEMP 97.9–99.1
--- NOTE | 2023-08-29 01:11 | NUR ---
Pt. arrived to the floor via stretcher. Pt is A&OX3, assessment complete. INT to lt. ac. Pt. denies pain or other needs. Call light within reach.
[2023-08-29] MEDS ORDERED: LIPITOR 80MG80 MG PO (03:02)
[2023-08-29] MEDS ORDERED: COZAAR100 MG PO ×3 (03:03→03:06)
[2023-08-29] MEDS ORDERED: BASAGLAR K100 UNIT/1 SQ ×2 (03:03→03:06)
[2023-08-29] MEDS ORDERED: PROTONIX 40MG T40 MG PO (03:03)
[2023-08-29] MEDS ORDERED: LOPRESSOR100 MG PO (03:03)
[2023-08-29] MEDS ORDERED: MAG-OX 400400 MG/TAB PO (03:03)
[2023-08-29] MEDS ORDERED: PLENDIL10 MG PO (03:04)
[2023-08-29] MEDS ORDERED: OMEGA-3 1000 MG1 CAP PO (03:04)
[2023-08-29] MEDS ORDERED: TRULICITY3 MG/0.5 M SQ (03:06)
[2023-08-29] MEDS ORDERED: HCTZ 25MG TAB25 MG PO (03:07)
[2023-08-29] MEDS ORDERED: NEURONTIN600 MG/TAB PO (03:07)
[2023-08-29 07:16] LABS: BASO # 0.1 K/mm3 (0.0-0.2); BASO % 0.7 % (0.0-2.0); EOS # 0.3 K/mm3 (0.0-0.7); EOS % 3.1 % (0.0-4.0); GRAN # 5.5 K/mm3 (1.4-6.5); GRAN % 62.8 % (42.2-75.2); HEMATOCRIT 38.9 % (42.0-52.0); LYMPH # 2.1 K/mm3 (1.2-3.4); LYMPH % 23.4 % (20.0-51.0); MEAN CELL VOLUME 88 fl (80.0-100.0); MEAN CORPUSCULAR HEMOGLOBIN 31 pg (27-31); MEAN CORPUSCULAR HGB CONC 35 g/dl (33.0-37.0); MEAN PLATELET VOLUME 10.9 fl (7.4-10.4); MONO # 0.9 K/mm3 (0.1-0.6); MONO % 9.7 % (1.7-9.3); PLATELET COUNT 120 K/mm3 (130-400); RED BLOOD COUNT 4.41 M/mm3 (4.20-5.60); REDCELL DISTRIBUTION WIDTH-CV 13.6 % (11.5-14.5)
[2023-08-29 07:20] LABS: HEMOGLOBIN 13.6 g/dl (13.5-18.0)
[2023-08-29 07:32] LABS: ALBUMIN 3.1 gm/dL (3.4-4.8); BILIRUBIN,TOTAL 1.3 mg/dL (0.2-1.2); CALCIUM 8.5 mg/dL (8.4-10.2); CREATININE, serum 0.8 mg/dL (0.72-1.25); TOTAL PROTEIN 5.7 gm/dL (6.2-8.1)
[2023-08-29 07:52] LABS: BILIRUBIN,DIRECT 0.5 mg/dL (0.0-0.5)
--- NOTE | 2023-08-29 08:55 | NUR ---
Pt is resting in bed, alert and oriened x4, receiving fluids per orders. States she has chronic pain in her back, lidocaine patch placed. Muscle Rub cream applied in right leg. Assessment completed, meds given. Assissted to the chair. No further needs at this time. Call light within reach.
--- NOTE | 2023-08-29 12:50 | NUR ---
Called placed to Dr. Nash to notify that Mina Bo PA, and Dr. Aragon do not consider that patient needs surgery and they would like to follow up as outpatient.
--- NOTE | 2023-08-29 13:58 | NUR ---
Initial visit; Patient welcomed and immediately began to talk about what brought him to the hospital. His legs are not responding and he hasn't been to exercise due to bad weather. Patient and Clinic Receptionist decided it was a good thing for him to be here at the hospital. It was uncanny that the Hospitalist and his nurse came to the door at that time. insisted that the Dr. come on in rather than come back like he suggested, because it is important that Cosmo talk with a DrGisel as soon as possible. excused herself and wished Cosmo well. will follow up when possible.
[2023-08-29] MEDS ORDERED: STOOL SOFTENER100 M2 PO (14:03)
[2023-08-29] MEDS ORDERED: CALCIUM 600 PLU1 TAB PO (14:04)
[2023-08-29] MEDS ORDERED: TURMERIC500 MG PO (14:05)
[2023-08-29] MEDS ORDERED: NATURAL E400 IU PO (14:06)
[2023-08-29] MEDS ORDERED: ZANAFLEX CAPSULE2 MG (14:06)
--- NOTE | 2023-08-29 16:37 | NUR ---
equipment worker met with patient to discuss discharge planning. Patient lives by himself in [place]. PCP is Dr. Bower, pharmacy [facility]. No issues affording medications. DPOA-HC is Alley Verde, daughter, P# [phone] and secondary is his son, David Pollard, P# [phone]. Patient has a cane, walker, wheelchair, walking stick, shower chair, rollator, crutches, blood pressure cuff and he uses ski poles to walk outside. Patient reports he normally sleeps in a recliner. Patient reports to be independent with ADLS. Patient would like outpatient PT at [facility]. Discharge plan: Home with OP PT
--- NOTE | 2023-08-29 21:00 | NUR ---
UPON SHIFT ASSESSMENT, GELA WAS UP IN BED AND AXO X 4 AND PLESANT. HE DENIES CHEST PAIN OR SOA. HE DOES C/O OF 8/10 RT SIDED PAIN R/T HISTORY OF FALLS. CURRENT VS ARE WNL. 21:00 MEDS INCLUDE GABAPENTIN-PATIENT STATES THIS AND MUSCLE RUB CREAM HELP WITH PAIN. ADMINISTERING NOW AND WILL REASSESS. POTASSIUM -3.0 ALERTED PHYSCICIAN TORB FOR POTASSIUM PLACEMENT GIVEN. CALL LIGHT WITHIN REACH, BEDALARM ON.
--- NOTE | 2023-08-29 23:00 | NUR ---
PATIENT REFUSED SCD PLACEMENT.
[2023-08-30] VITALS (7 sets, daily range): BP systolic 128–153; BP diastolic 72–79; PULSE 62–67; TEMP 97.6–98.3
--- NOTE | 2023-08-30 07:50 | NUR ---
PT SITTING IN CHAIR UPON ENTERING. ASSESSMENT DONE, MEDS GIVEN PER ORDER. PT REPORTS RIGHT HIP AND MID BACK PAIN, MUSCLE CREAM APPLIED ALONG RIGHT THIGH/HIP AND A LIDOCAINE PATCH APPLIED TO MID BACK. INT TO RIGHT AC PATENT. PT DENIES NEEDS AT THIS TIME. CHAIR ALARM ON, CALL LIGHT IN REACH.
--- NOTE | 2023-08-30 11:02 | NUR ---
KARAN, QUALITY ENG, ASKING THIS NURSE ABOUT DISCHARGE NOTES REGARDING UROLOGY. UROLOGY CONSULTED 08/29 BUT HAS NOT BEEN ON THE FLOOR TO SEE PT YET. DR URRUTIA CALLED AND UPDATED ON THIS. PROVIDER STATED THAT KIDNEY STONES WOULD BE TAKEN CARE OF OUTPATIENT AND THAT HE DOESNT NEED TO SEE PT DURING HOSPITAL STAY. PROVIDER TOLD THIS NURSE THAT HE WILL BE CONTACTING PT FOR OUTPATIENT UROLOGY APPOINTMENTS. KARAN UPDATED
--- NOTE | 2023-08-30 11:43 | NUR ---
IV REMOVED. PT GIVEN DISCHARGE INSTRUCTIONS AND VERBLAIZED UNDERSTANDING. PT DRESSED IN PERSONAL CLOTHES AND EATING LUNCH AT THIS TIME.
--- NOTE | 2023-08-30 12:00 | NUR ---
PT STATED THAT HE DROVE HERE. PT STATES THAT HE FEELS COMFORTABLE DRIVING HOME AND HAS AN ACCESSIBLE HOME/GARAGE AND IS DRIVING HIMSELF HOME. PT ESCORTED TO PERSONAL VEHICLE VIA WHEELCHAIR BY JOSÉ MIGUEL MARTÍNEZ
--- NOTE | 2023-08-30 12:44 | NUR ---
Crew Clerk was notified that patient is going to be discharged today with orders for outpatient PT. HARRY contacted [facility] and scheduled PT appointment for 09/10/23 at 0900. HARRY provided appointment to community board member to include in orders. HARRY faxed referral packet and orders to fax #[phone].
== END 2023-08-30 11:30 | disposition home or self-care (01) ==
LOC: COL.ER 15:01 → MEDICAL 23:22
PROVIDERS: Nurse Practitioner; Physician Assistant; ADMIT Internal Medicine
DX: E11.10 Type 2 diabetes mellitus with ketoacidosis without coma (principal); D72.829 Elevated white blood cell count, unspecified; I69.351 Hemiplegia and hemiparesis following cerebral infarction affecting right dominant side; M79.661 Pain in right lower leg; I48.20 Chronic atrial fibrillation, unspecified; E11.9 Type 2 diabetes mellitus without complications; I10 Essential (primary) hypertension; E66.9 Obesity, unspecified; K75.81 Nonalcoholic steatohepatitis (NASH); R79.89 Other specified abnormal findings of blood chemistry; Z79.01 Long term (current) use of anticoagulants; Z79.4 Long term (current) use of insulin; Z79.899 Other long term (current) drug therapy
CPT/HCPCS: G0378; J1815; J2270; J7030; J7120; Q9967

== ENCOUNTER → 2023-12-07 | Day surgery (SDC) | payer MEDICARE, OTHER ==
[~2023-12-07] VITALS: Ht 170.2 cm; Wt 96.1 kg
[~2023-12-07] MED LIST changes: +BASAGLAR K100 UNIT/1 SQ; +CALCIUM 600 PLU1 TAB PO; +LANTUS100 U/ML SQ; +LR 1,000 ML IV ONE; +Lidocaine PF 2% (20 MG/ML) 5 ML VIAL IV ONE; +MAG-OX 400400 MG/TAB PO; +NATURAL POTASS595 MG; +OMEGA-3 1000 MG1 CAP PO; +Ondansetron 4 MG/2 ML VIAL IV PRN; +STOOL SOFTENER100 M2 PO; +TRULICITY3 MG/0.5 M SQ; +TURMERIC500 MG PO; +VITAMIN E 400 U4001 PO; +ZANAFLEX CAPSULE2 MG
[2023-12-07 09:40] VITALS: BP 149/93; PULSE 75; TEMP 98.8
[2023-12-07 11:10] VITALS: BP 134/70; PULSE 77; TEMP 98.2
[2023-12-07 11:25] VITALS: BP 126/66; PULSE 71; TEMP 98.2
[2023-12-07 11:35] VITALS: PULSE 75
--- NOTE | 2023-12-07 11:41 | NUR ---
1110 Pt ambulated from cart to chair with standby assist 1115 pt tolerating po intake well 1118 MD Antwon in room with pt 1132 pt verbalizes discharge eduction understanding 1135 pt assisted with getting dressed 1138 pt escorted out via wheelchair with family to vehicle
== END ==
LOC: SDCO 08:26
DX: Z12.11 Encounter for screening for malignant neoplasm of colon (principal); K74.60 Unspecified cirrhosis of liver; K57.30 Diverticulosis of large intestine without perforation or abscess without bleeding; K75.81 Nonalcoholic steatohepatitis (NASH); I85.10 Secondary esophageal varices without bleeding; D12.6 Benign neoplasm of colon, unspecified; G47.33 Obstructive sleep apnea (adult) (pediatric)
CPT/HCPCS: J2704; J7120

== ENCOUNTER 2024-07-01 08:39 | Inpatient (IN) | payer MEDICARE, OTHER ==
[2024-07-01] VITALS (606 sets, daily range): BP systolic 102–127; BP diastolic 48–58; PULSE 66–70; TEMP 100.1–100.4; O2SAT 88–100
[~2024-07-01] VITALS: Ht 172.7 cm; Wt 105.0 kg
[~2024-07-01 08:39] MED LIST changes: -LR 1,000 ML IV ONE; -Lidocaine PF 2% (20 MG/ML) 5 ML VIAL IV ONE; -NATURAL POTASS595 MG; +NATURAL POTASS595 MG PO; -Ondansetron 4 MG/2 ML VIAL IV PRN; -VITAMIN E 400 U4001 PO
[2024-07-01] MEDS ORDERED: NS 500 ML IV ONE ×2 (08:58→09:45)
[2024-07-01 09:23] LABS: HEMATOCRIT 49.9 % (42.0-52.0); HEMOGLOBIN 17.2 g/dl (13.5-18.0); MEAN CELL VOLUME 92 fl (80.0-100.0); MEAN CORPUSCULAR HEMOGLOBIN 32 pg (27-31); MEAN CORPUSCULAR HGB CONC 35 g/dl (33.0-37.0); MEAN PLATELET VOLUME 11.1 fl (7.4-10.4); PLATELET COUNT 136 K/mm3 (130-400); RED BLOOD COUNT 5.44 M/mm3 (4.20-5.60); REDCELL DISTRIBUTION WIDTH-CV 14.2 % (11.5-14.5)
[2024-07-01 09:27] LABS: INR 2.1 (0.8-3.0); PROTHROMBIN TIME 22.9 SECONDS (9.7-12.8)
[2024-07-01 09:29] LABS: PARTIAL THROMBOPLASTIN TIME 34.1 SECONDS (26.0-37.0)
[2024-07-01 09:34] LABS: ALBUMIN 3.7 g/dL (3.4-4.8); BILIRUBIN,TOTAL 2.5 mg/dL (0.2-1.2); CALCIUM 9.4 mg/dL (8.4-10.2); CREATININE, serum 1.61 mg/dL (0.72-1.25); POTASSIUM 3.5 mEq/L (3.5-4.5); TOTAL PROTEIN 6.5 g/dl (6.2-8.1)
[2024-07-01] MEDS ORDERED: Iohexol 300 - 100 ML VIAL IV ONE (10:01)
[2024-07-01] MEDS ORDERED: NS 100 ML IV SCH (10:01)
[2024-07-01 10:08] LABS: BAND 18 % (0-10); LYMPHOCYTE 2 % (20.0-51.0); METAMYELOCYTE 1 % (0-0); NEUTROPHILS 71 % (42.0-75.2)
[2024-07-01 10:09] LABS: PLATELET ESTIMATE NORMAL (NORMAL)
[2024-07-01 10:19] LABS: TROPONIN-I 0.051 ng/mL (0.00-0.033)
[2024-07-01] MEDS ORDERED: fentaNYL 50 MCG/ML 2 ML VIAL IV ONE (10:45)
[2024-07-01] MEDS ORDERED: NS 1,000 ML IV ONE (10:45)
[2024-07-01] MEDS ORDERED: NS 1,000 ML IV SCH (11:45)
[2024-07-01] MEDS ORDERED: Albuterol/Ipratropium 3 MG-0.5 MG/3 ML Neb Soln IH PRN (12:30)
[2024-07-01] MEDS ORDERED: Polyethylene Glycol 3350 17 GM PDS PO PRN (12:30)
[2024-07-01] MEDS ORDERED: Acetaminophen 325 MG TAB PO PRN (12:30)
[2024-07-01] MEDS ORDERED: Docusate Sodium 100 MG CAP PO PRN (12:30)
[2024-07-01] MEDS ORDERED: LR 1,000 ML IV SCH (12:30)
[2024-07-01] MEDS ORDERED: Ondansetron 4 MG/2 ML VIAL IV PRN (12:30)
[2024-07-01] MEDS ORDERED: Doxycycline Hyclate 100 MG in NS 150 ML IV SCH (12:30)
[2024-07-01 12:48] LABS: ARTERIAL BLD GAS O2 SATURATION 92.3 % (92-100); ARTERIAL BLD GAS TCO2 CT 19.5; ARTERIAL BLOOD GAS BASE EXCESS -5.3 (-2-2); ARTERIAL BLOOD GAS HCO3 18.5 meq/L (22-26); ARTERIAL BLOOD GAS PCO2 31.7 mmHg (35-45); ARTERIAL BLOOD GAS PO2 62.3 mmHg (80-100); ARTERIAL BLOOD GAS pH 7.38 (7.35-7.45)
[2024-07-01] MEDS ORDERED: COZAAR 50MG50 MG/TAB PO (14:10)
[2024-07-01] MEDS ORDERED: ATROVENT NASAL15 ML NS (14:10)
[2024-07-01] MEDS ORDERED: NEURONTIN300 MG/CAP PO (14:12)
[2024-07-01] MEDS ORDERED: OMEGA-3 1000 MG1 CAP PO (14:12)
[2024-07-01] MEDS ORDERED: Fexofenadine 180 MG **** subs to Loratadine 10 MG PO SCH (15:51)
[2024-07-01] MEDS ORDERED: Glucagon 1 MG VIAL IM PRN (16:00)
[2024-07-01] MEDS ORDERED: Dextrose (Glucose) 15 GM (4 x 3.75 GM) Chewable TABLET PACK PO PRN (16:00)
[2024-07-01] MEDS ORDERED: Dextrose 50% Water 25 GM/50 ML SYRINGE IV PRN (16:00)
[2024-07-01] MEDS ORDERED: Insulin Lispro (HumaLOG) SQ SCH (17:00)
--- NOTE | 2024-07-01 19:00 | NUR ---
REPORT RECEIVED FROM ERIN DANIEL. REVIEWED DAYS EVENTS. PATIENT HAS BILATERAL AC PERIPHERAL ACCESS SITES, RUNNING LEVO AT .25 (45.3ML/HR) AND LR AT 100ML/HR. PATIENT ON AIRVO AT 40L/70%. SAUCEDO IN PLACE. PATIENT IS RESTING IN BED WITH EYES CLOSED, CALL LIGHT WITHIN REACH, VITAL SIGNS STABLE AT THIS TIME. WILL CONTINUE PLAN OF CARE.
[2024-07-01] MEDS ORDERED: Atorvastatin 80 MG TAB PO SCH (21:00)
[2024-07-01] MEDS ORDERED: Magnesium Oxide 400 MG TAB PO SCH (21:00)
[2024-07-01] MEDS ORDERED: Gabapentin 300 MG CAP PO SCH (21:00)
[2024-07-01] MEDS ORDERED: Insulin Glargine-ygfn (Lantus) SQ SCH (21:00)
[2024-07-01 21:34] LABS: COLLECTION METHOD CLEAN CATCH
[2024-07-01 21:48] LABS: URINE APPEARANCE CLEAR (CLEAR/HAZY); URINE BLOOD 2+ (NEGATIVE); URINE COLOR YELLOW (YELLOW); URINE GLUCOSE NEGATIVE (NEGATIVE); URINE KETONE NEGATIVE (NEGATIVE); URINE NITRATE NEGATIVE (NEGATIVE); URINE PROTEIN(semi-quant) 1+ (NEGATIVE); URINE UROBILINOGEN 0.2 E.U/dL (0.2-1.0)
[2024-07-01] MEDS ORDERED: Lidocaine 4% Topical Patch TP PRN (23:15)
[2024-07-01] MEDS ORDERED: Morphine 4 MG/ML VIAL IV ONE (23:15)
[2024-07-02] VITALS (1093 sets, daily range): BP systolic 114–147; BP diastolic 53–81; PULSE 74–86; TEMP 98–99.8; O2SAT 91–100
[2024-07-02 04:40] LABS: HEMATOCRIT 39.6 % (42.0-52.0); MEAN CELL VOLUME 90 fl (80.0-100.0); MEAN CORPUSCULAR HEMOGLOBIN 32 pg (27-31); MEAN CORPUSCULAR HGB CONC 35 g/dl (33.0-37.0); MEAN PLATELET VOLUME 10.9 fl (7.4-10.4); PLATELET COUNT 120 K/mm3 (130-400); REDCELL DISTRIBUTION WIDTH-CV 14.3 % (11.5-14.5)
[2024-07-02 04:57] LABS: ALBUMIN 2.6 g/dL (3.4-4.8); BILIRUBIN,TOTAL 1.8 mg/dL (0.2-1.2); CALCIUM 8.2 mg/dL (8.4-10.2); CREATININE, serum 0.97 mg/dL (0.72-1.25); POTASSIUM 3.1 mEq/L (3.5-4.5); TOTAL PROTEIN 5.2 g/dl (6.2-8.1)
[2024-07-02 05:26] LABS: BAND 28 % (0-10); LYMPHOCYTE 8 % (20.0-51.0); NEUTROPHILS 62 % (42.0-75.2); PLATELET ESTIMATE NORMAL (NORMAL)
[2024-07-02] MEDS ORDERED: *Potassium Replacement Protocol MC SCH (07:30)
--- NOTE | 2024-07-02 07:45 | NUR ---
Patient awake and resting in bed; reports feeling "better" than yesterday and states that his breathing feels improved. Does endorse some right sided hip pain due to his fall at home. Assisted with repositioning. VS stable at this time. Call light left within reach.
[2024-07-02] MEDS ORDERED: Potassium Bicarbonate/Citrate 20 MEQ Effervescent TAB PO SCH (08:15)
[2024-07-02] MEDS ORDERED: Loratadine 10 MG TAB PO SCH (09:00)
[2024-07-02] MEDS ORDERED: Pantoprazole 40 MG in NS 10 ML IV SCH (09:00)
[2024-07-02] MEDS ORDERED: Metoprolol Tartrate 25 MG TAB PO SCH (09:30)
--- NOTE | 2024-07-02 10:54 | NUR ---
Initial visit; "Adrian" thanked Cook Short Order for visiting him and states sometimes at home he watches "Mass" three times a day. It gives him a lot of peace. Cook Short Order said she would keep him in her prayers and will follow-up with him.
[2024-07-02] MEDS ORDERED: Acetaminophen 500 MG TAB PO PRN (12:00)
--- NOTE | 2024-07-02 13:32 | NUR ---
sheet metal worker apprentice spoke with PT, Marilee, whom just finished working with patient and expressed they would recommend home health services for patient upon discharge. sheet metal worker apprentice met with patient to discuss discharge planning. [place] himself. Jose Pollard (son) P# [phone] is listed as patient's point of contact and is his DPOA-HC. Alley Verde P# [phone] is patient's secondary contact and alternate for DPOA-HC. PCP is Dr. Juan Carlos Bower, Pharmacy is currently [facility] pharmacy on [address]. No issues affording medications. Insurance is Medicare A and B and for Life. Patient is currently on oxygen but is not on oxygen at his baseline. Patient has a rollator walker but would like a FWW for stability upon discharge and would like to borrow it from [facility]. SW explained they could run it through his insurance but patient expressed he wanted to borrow it from [facility]. SW expressed she could call there and have one set aside for him at time of discharge. Patient reports he is normally independent with ADLS and is able to transport himself to and from appointments. Patient would like to return home at time of discharge. SW discussed PT recommendations of home health services and provided the Medicare.gov list of home health options. Patient reported he had [facility] in the past but also has gone to [facility] for rehab. Patient is going to review his options and social services director will follow up. SW contacted patient's son, Jose, to discuss the above information with him. Jose is in agreement with discharge plan of home with home health. SW explained they would continue to keep him updated and if the plan changes they would discuss with him. Jose understood and had no other questions for the social services director. Discharge plan: Home with Home Health
--- NOTE | 2024-07-02 20:00 | NUR ---
Pt resting comfortably in bed. VSS. Pt denies pain or discomfort at this time. IV fluids infusing to peripheral line without complications. Evening medications administered. Evening assessment completed. Pt has a small sore on the top of the scrotal area that pt states is from previous use of briefs at home that were too small. Scrotal area is reddened, but blanchable, and tender upon assessment. Cream applied and catheter care completed to prevent further irritation. Pt repositioned without difficulty. 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 No further concerns at this time. Call light within reach.
[2024-07-02] MEDS ORDERED: Morphine 4 MG/ML VIAL IV PRN (21:30)
[2024-07-02] MEDS ORDERED: tiZANidine 4 MG TAB PO ONE (22:15)
[2024-07-03] VITALS (627 sets, daily range): BP systolic 96–155; BP diastolic 55–81; PULSE 65–74; TEMP 97.5–99.8; O2SAT 89–99
[2024-07-03 04:40] LABS: BASO % 0.4 % (0.0-2.0); EOS # 0.1 K/mm3 (0.0-0.7); EOS % 0.7 % (0.0-4.0); GRAN % 80.1 % (42.2-75.2); HEMOGLOBIN 12.6 g/dl (13.5-18.0); LYMPH # 1.4 K/mm3 (1.2-3.4); LYMPH % 12.2 % (20.0-51.0); MEAN CELL VOLUME 90 fl (80.0-100.0); MEAN CORPUSCULAR HEMOGLOBIN 31 pg (27-31); MEAN CORPUSCULAR HGB CONC 35 g/dl (33.0-37.0); MEAN PLATELET VOLUME 10.9 fl (7.4-10.4); MONO # 0.6 K/mm3 (0.1-0.6); MONO % 5.5 % (1.7-9.3); PLATELET COUNT 80 K/mm3 (130-400); RED BLOOD COUNT 4.01 M/mm3 (4.20-5.60); REDCELL DISTRIBUTION WIDTH-CV 14.1 % (11.5-14.5)
[2024-07-03 05:08] LABS: ALBUMIN 2.3 g/dL (3.4-4.8); BILIRUBIN,TOTAL 2.1 mg/dL (0.2-1.2); CALCIUM 8.2 mg/dL (8.4-10.2); CREATININE, serum 0.84 mg/dL (0.72-1.25); POTASSIUM 3.7 mEq/L (3.5-4.5)
[2024-07-03] MEDS ORDERED: Potassium Bicarbonate/Citrate 20 MEQ Effervescent TAB PO SCH (06:15)
--- NOTE | 2024-07-03 07:27 | NUR ---
Report recieved from ERIN Castillo. Reviewed labs. IVF infusing per orders. Pt resting in bed with eyes closed on 2L HFNC. Vital signs are stable. Mantilla in place is free of kinks and twists. Denies needs at this time. Call light within [facility]. Will continue with POC.
[2024-07-03] MEDS ORDERED: Furosemide 40 MG/4 ML VIAL IV ONE (08:30)
[2024-07-03] MEDS ORDERED: Doxycycline Monohydrate 100 MG CAP PO SCH (09:00)
--- NOTE | 2024-07-03 10:55 | NUR ---
Pt ambulated with walker and gait belt to nurses station and back to chair. Pt tolerated well. Call light within reach.
--- NOTE | 2024-07-03 15:18 | NUR ---
PATIENT BROUGHT TO FLOOR AT APPROXIMATELY 1500. IV'S X2 TO BILAT AC'S. PATIENT DENIES ANY PAIN OR SOB. PATIENT RESTING IN CHAIR, CALL LIGHT IN REACH.
--- NOTE | 2024-07-03 15:55 | NUR ---
Report called to ERIN Ortega. All questions answered. Pt escorted to room 316 via wheelchair and helped to bahtroom and chair when in room. Shannon and DRY HOUSE ATTENDANT in room.
--- NOTE | 2024-07-03 16:47 | NUR ---
roundhouse worker contacted [facility] whom is going to put a walker aside for the patient for when he discharges. roundhouse worker followed up with patient regarding home health option. Patient chose [facility]. SW also discussed life alert options and provided written information on local life alerts. Patient stated he always has his phone on him, so he did not feel he needed a life alert. SW notified patient about the FWW waiting for him at [facility]. Patient has no other DME needs at this time. SW faxed referral to [facility]. SW was notified [facility] is agreeable to accept patient upon discharge. SW attended multidisciplinary clinical team meeting and discussed patient's progress and discharge plan. Plan is for patient to return home with home health upon discharge. Everyone is in agreement. SW contacted patient's son, Jose, to provide the update of patient moving to the medical floor and the discussion about life alerts and home health. Jose stated that patient needs to go into a "care facility" but that he is too stubborn and will not go into one. HARRY asked Jose if he was still in agreement with patient returning home with home health and Jose stated he was. HARRY explained they also arranged for for patient to get a FWW at [facility] upon discharge. Jose understood and has no other questions at this time. Discharge plan: Home with Home health - [facility]
--- NOTE | 2024-07-03 20:00 | NUR ---
Pt resting comfortably in bed. VSS. Pt denies pain or discomfort at this time. IV not infusing with medications at this time. Evening medications administered without difficulty. Evening assessment completed. Pt currently watching television in bed. Call light within reach. No further concerns at this time.
[2024-07-03] MEDS ORDERED: Metoprolol Tartrate 50 MG TAB PO SCH (21:00)
[2024-07-04] VITALS (8 sets, daily range): BP systolic 125–155; BP diastolic 74–79; PULSE 64–71; TEMP 98.1–98.2
[2024-07-04 08:01] LABS: BASO % 0.3 % (0.0-2.0); EOS # 0.1 K/mm3 (0.0-0.7); EOS % 1.6 % (0.0-4.0); GRAN # 5.5 K/mm3 (1.4-6.5); GRAN % 74.7 % (42.2-75.2); HEMATOCRIT 40.9 % (42.0-52.0); HEMOGLOBIN 14.2 g/dl (13.5-18.0); LYMPH # 1.2 K/mm3 (1.2-3.4); LYMPH % 16.4 % (20.0-51.0); MEAN CELL VOLUME 90 fl (80.0-100.0); MEAN CORPUSCULAR HEMOGLOBIN 31 pg (27-31); MEAN CORPUSCULAR HGB CONC 35 g/dl (33.0-37.0); MEAN PLATELET VOLUME 11.2 fl (7.4-10.4); MONO # 0.5 K/mm3 (0.1-0.6); MONO % 6.6 % (1.7-9.3); PLATELET COUNT 94 K/mm3 (130-400); RED BLOOD COUNT 4.54 M/mm3 (4.20-5.60); REDCELL DISTRIBUTION WIDTH-CV 13.8 % (11.5-14.5)
[2024-07-04 09:09] LABS: CALCIUM 8.7 mg/dL (8.4-10.2); CREATININE, serum 0.83 mg/dL (0.72-1.25); POTASSIUM 3.5 mEq/L (3.5-4.5)
[2024-07-04] MEDS ORDERED: Potassium Bicarbonate/Citrate 20 MEQ Effervescent TAB PO SCH (09:30)
--- NOTE | 2024-07-04 10:11 | NUR ---
Patient sitting up in chair, alert and oriented x 4. States he needs assistance to change his diaper since he is incontinent. Hygiene provided. Assessment completed, meds given. No further needs at this time. Call light within reach.
[2024-07-04] MEDS ORDERED: MONODOX100 PO (14:09)
[2024-07-04] MEDS ORDERED: OMNICEF 300MG300 MG PO (14:13)
--- NOTE | 2024-07-04 15:59 | NUR ---
Patient was provided with discharge information, all questions answered. Pt states he is waiting for his daughter in law to pick him up. Telemetry and IV accesses were discontinued.
--- NOTE | 2024-07-04 16:36 | NUR ---
moving worker met with patient at bedside to discuss potential SNF options. Patient was alert and oriented and open to discussion. moving worker provided patient with Medicare.gov SNF list and patient was agreeable to referral to [facility]. Patient stated that if [facility] declined, he would rather go home with home health. SW faxed referral to [facility]. Patient notified patient that [facility] declined, and patient stated that he would like to go home with home health. HARRY compelted IM with patient and placed original on chart. Plan: D/C home with home health.
--- NOTE | 2024-07-08 13:14 | NUR ---
seafood process worker received a call from [facility] that they did not received discharge orders or updates. They stated they would be able to go see patient today but would need orders. HARRY contacted MARIXA Gillespie, for assistance with updating the orders to include nursing for home health along with PT and OT. HARRY faxed updates and discharge orders to [facility]. Discharge plan: Home with [facility]
== END 2024-07-04 17:50 | disposition home health service (06) | DRG 871 ==
LOC: COL.ER 08:39 → ICU 12:19 → MEDICAL 07-03 15:16
PROVIDERS: Emergency Medicine; ADMIT Internal Medicine
DX: A41.9 Sepsis, unspecified organism (principal); J18.9 Pneumonia, unspecified organism; J96.01 Acute respiratory failure with hypoxia; R65.21 Severe sepsis with septic shock; I48.20 Chronic atrial fibrillation, unspecified; M62.82 Rhabdomyolysis; N17.9 Acute kidney failure, unspecified; I69.351 Hemiplegia and hemiparesis following cerebral infarction affecting right dominant side; E66.9 Obesity, unspecified; Z79.01 Long term (current) use of anticoagulants; K21.9 Gastro-esophageal reflux disease without esophagitis; Z79.4 Long term (current) use of insulin; E78.5 Hyperlipidemia, unspecified; E87.6 Hypokalemia; Z68.35 Body mass index [BMI] 35.0-35.9, adult
CPT/HCPCS: A4314; A9284; J1815; J1940; J2270; J2470; J2543; J3010; J3370; J7030; J7040; J7060; J7120; Q9967